=== PATIENT | male | born 1960 | race Caucasian/White ===

== ENCOUNTER 2017-02-02 15:51 | Emergency (ER) | payer MEDICAID ==
[2017-02-02 16:02] VITALS: BP 115/65; BMI 37.5
--- NOTE | 2017-02-02 19:15 | DR.EXTPAIN ---
HPI - Time seen Time seen: 19:15 - PCP Primary Care Physician: NONE - HPI Comment HPI Comment: PIECE OF WIRE AT BOTTOM OF RT FOOT/BASE OF 5TH TOE. TD UTD. - Complaint/Symptoms Chief Complaint Doctor Comments: PUNCTURE WOUND RIGHT FOOT WITH EMBEDDED FB. Chief Complaint:: GOT PIECES OF WIRE IN BOTTOM OF RIGHT FOOT. Self Treatment fo Chief Complaint: HAS TRIED TO GET TO GET PIECES OF WIRE OUT OF HIS FOOT UNSUCESSFUL - Source History Provided: Patient - Mode of arrival Mode of Arrival: Ambulatory - Timing Onset of Chief Complaint: 01/26/17 - Context History of: None - Associated signs and symptoms Associated Signs and Symptoms: Pain, Swelling PMH - PMH Past Medical History: Yes Past Medical History: Coronary Artery Disease, Dyslipidemia, Hypertension Past Surgical History: Yes Surgical History: Angioplasty/Stents, Ortho Surgery - Family History History of Family Medical Conditions: Yes Family Medical History: Cancer - Social History Type of Tobacco Use: Cigarettes Alcohol Use: None Do you use any recreational Drugs:: No Lives With: Family Lives Where: Home - infectious screening In the last 2 months have you had wt loss of >10#?: NO Have you had fever, night sweats or hemotysis?: No Have you traveled outside the country in the last 6 months?: No Isolation: Standard ROS - Review of Systems Constitutional: No Symptoms Reported Eyes: No Symptoms Reported ENTM: No Symptoms Reported Respiratoy: No Symptoms Reported Cardiovascular: No Symptoms Reported Gastrointestinal/Abdominal: No Symptoms Reported Genitourinary: No Symptoms Reported Neurological: No Symptoms Reported Musculoskeletal: Right, Foot Integumentary: Change in Color, Wound (PUNCTURE WOUND ) Hematologic/Lymphatic: No Symptoms Reported Endocrine: No Symptoms Reported All Other Systems: Reviewed and Negative PE - Vital Signs Vitals: Temperature 98.5 F Pulse Rate 74 Respiratory Rate 14 Blood Pressure 115/65 O2 Sat by Pulse Oximetry 95 - General Limitations: No Limitations General Appearance: Alert - Head Head Exam: Normal Inspection - Eyes Eye exam: Normal Appearance - ENT ENT Exam: Normal External Ear Exam - Neck Neck Exam: Normal Inspection - Chest Chest Inspection: Symmetric Chest Wall Rise - Respiratory Respiratory Exam: Normal Lung Sounds Bilat Respiratory Exam: Bilateral Clear to Auscultation - Cardiovascular Cardiovascular Exam: Regular Rate, Normal Heart Sounds - Abdominal Exam Abdominal Exam: Normal Inspection - Extremities Extremities Exam: Tenderness (BOTTOM RT TOE, FB/PIECE OF WIRE.) - Neurological Neurological Exam: Alert, Oriented X3 - Psychiatric Psychiatric Exam: Normal Affect, Normal Mood - Skin Skin Exam: Erythema MDM - Differential Diagnosis Differential Diagnosis: Other (PUNTURE WOUND.) Course - Treatment Treatment: SEE ORDERS. - Consultation Consultation Comments: DISCUSS PATIENT WITH DR. JOHNSON. HE WII SEE PATIENT IN HIS OFFICE IN AM. - Education/Counseling Education/Counseling: Patient, Family, Education Educated On: Treatment, Diagnosis, Needs for Follow Up ROR - XRAY XRAY Interpreted by: Radiologist XRAY Findings: REPORT DISCUS WITH PATIENT. - Diagnosis Discharge Problem: Puncture wound of foot with foreign body Qualifiers: Encounter type: initial encounter Laterality: right Qualified Code(s): S91.341A - Puncture wound with foreign body, right foot, initial encounter - Discharge Plan Disposition: 01 HOME, SELF-CARE Condition: Stable Prescriptions: Cephalexin [Keflex Cap 500 mg] 500 mg PO QID #40 cap Ibuprofen [Motrin Tab 800 mg] 800 mg PO Q8H PRN #20 tab PRN Reason: Pain/Inflammation - Follow ups/Referrals Follow ups/Referrals: NFD,None [Primary Care Provider] - 3 days - Instructions Instructions: Puncture Wound, [id number] Additional Instructions: RETURN TO ED IF WORSE. SEE ORTHOPEDIC DOCTOR IN AM AT 09:00 AM IN HIS OFFICE IN [place]. YOU HAVE METAL EMBEDDED IN YOU FOOT.
--- NOTE | 2017-02-02 19:49 | RAD ---
HISTORY: Right foot injury/foreign body Comparison: None. EXAM: Three view series, right foot. Findings: The exam demonstrates diffuse plantar soft tissue swelling and edema with a tiny radiodense 1 millim eter foreign body seen within the plantar/lateral aspect of the right foot adjacent to the 5th proxi mal phalanx head which probably reflects a small metallic object. No acute fracture or acute bony in jury is seen. The Lisfranc joint is intact. There is mild midfoot and subtalar joint DJD. Diffuse he el and plantar soft tissue edema and swelling is observed. Impression: Diffuse plantar soft tissue swelling and edema with a tiny radiodense 1 mm foreign body seen within the plantar/lateral aspect of the right foot adjacent to the 5th proximal phalanx head which probabl y reflects a small metallic object. No acute fracture or acute bony injury is seen. The Lisfranc seth nt is intact. Mild midfoot and subtalar joint DJD. Diffuse heel and plantar soft tissue edema and sw elling is observed. Reported By:
[2017-02-02] MEDS ORDERED: KEFLEX CAP 500 MG PO ONE ×2 (21:00→21:11)
[2017-02-02] MEDS ORDERED: MOTRIN TAB 800 MG PO ONE ×2 (21:01→21:11)
== END 2017-02-02 21:20 | disposition home or self-care (01) ==
LOC: ER 16:12
DX: S91.341A Puncture wound with foreign body, right foot, initial encounter (principal); M79.89 Other specified soft tissue disorders; R60.9 Edema, unspecified; W45.8XXA Other foreign body or object entering through skin, initial encounter; Y92.9 Unspecified place or not applicable
CPT/HCPCS: 73630; 99282; 99283

== ENCOUNTER → 2017-02-06 | Day surgery (SDC) | payer MEDICAID ==
[~2017-02-06] MED LIST: ANCEF VIAL 1 GM ONE; D5 LR 1000 ML 1,000 ML IV ONE; HYDROGEN PEROXIDE 3% ONE; MARCAINE 0.25% WITH EPI IJ ONE; NS 100 ML IV 100 ML IV ONE; NS IRRIGATION 1000 ML 1,000 ML with BACITRACIN VIAL 50,000 UNT IR ONE; PERCOCET TAB 5/325 MG PO PRN
--- NOTE | 2017-02-06 14:20 | RAD ---
HISTORY: Follow up soft tissue foreign body Study: Right foot three view Comparison: None Findings: The previously described tiny metallic radiopaque foreign body noted to be adjacent to the base of t he 5th proximal phalanx on the prior examination is no longer present having been successfully remov ed. There is some soft tissue swelling in the area. The bones and joints of the foot are intact and normally aligned. IMPRESSION: Successful removal of the metallic foreign body previously noted adjacent to the base of the 5th pro ximal phalanx. Reported By:
[2017-02-06 14:44] VITALS: BP 118/55
== END | disposition home or self-care (01) ==
LOC: SURG1 11:55
PROVIDERS: ATTEND Orthopaedic Surgery
PROC: 0JCQ0ZZ Extirpation of Matter from Right Foot Subcutaneous Tissue and Fascia, Open Approach (ICD-10-PCS; principal; 2017-02-06 11:45)
DX: S91.341A Puncture wound with foreign body, right foot, initial encounter (principal); X58.XXXA Exposure to other specified factors, initial encounter
CPT/HCPCS: 73630; 76000; A4222; S0020; J0690; J7120

== ENCOUNTER → 2017-02-08 | Outpatient (CLI) | payer MEDICAID ==
[2017-02-06 14:44] VITALS: BP 118/55
--- NOTE | 2017-02-08 15:05 | RAD ---
HISTORY: Status post removal foreign body Study: Right calcaneus two-view Comparison: February 06, 2017 Findings: There is no evidence for fracture, lytic, or blastic lesion. The subtalar joint is normal. No radiop aque foreign body is identified in the soft tissues. IMPRESSION: No significant abnormality identified Reported By:
== END ==
LOC: RAD 14:23
PROVIDERS: ATTEND Orthopaedic Surgery
DX: S91.341A Puncture wound with foreign body, right foot, initial encounter (principal); X58.XXXA Exposure to other specified factors, initial encounter
CPT/HCPCS: 73650

== ENCOUNTER → 2017-05-04 | Outpatient (CLI) | payer MEDICAID ==
[2017-02-06 14:44] VITALS: BP 118/55
--- NOTE | 2017-05-05 08:53 | MRI ---
MR left knee without contrast Indication: Left knee pain stiffness. History of lateral meniscus tear diagnosed in the past. Comparison: September 27, 2016 radiograph. Findings: There is moderate knee joint degenerative change, with joint space narrowing worse the med ial femorotibial joint. Neurovascular structures are normal. Bone marrow signal is normal. The ACL is intact. Lateral collateral ligamentous complex is intact. Osteophyte at the medial femora l epicondyle suggest sequela of old MCL injury. There is no large joint effusion. There is horizontal oblique tear of the medial meniscus near circumferential involving the anterior horn, body and posterior horn see sagittal images 17-13. Coronal image 18 shows extrusion of the med ial meniscus. There is high signal in the lateral meniscus involving the body, anterior horn and posterior horn roblero ggesting circumferential horizontal oblique tear which most convincingly contacts the inferior artic ular surface on coronal image 20. There is fluid at the tibial attachment of the PCL see sagittal image 21 and coronal image 25. This is probably a PCL ganglion, but partial tear is possible. There is chondromalacia and cartilage loss most pronounced over the medial femorotibial joint with f issuring over the lateral patellar facet and median patellar ridge. Extensor mechanism is intact oth erwise. There is round fluid collection with internal debris, measuring 1.9 x 1.5 x 3.0 cm on axial image 18 and coronal image 21 (AP, trans, CC). This could represent a ganglion cyst, but is associated with the MCL. This probably represents a large parameniscal cyst, given its in Amend association with the posterior aspect of the body on coronal image 21. MCL versus possible. Impression: 1. Complex tear of the medial meniscus with medial femorotibial joint degenerative change and extrus ion of the medial meniscus. There is associated large medial cyst, probably a parameniscal cyst, tho ugh mcl bursitis is possible as a secondary consideration. 2. Nondisplaced horizontal oblique tear of the lateral meniscus common near circumferential but wors t at the body. 3. Fluid at the tibial attachment of the PCL, probably PCL ganglion but partial tear the PCL is poss ible. 4. Multi compartment degenerative change worse in the medial femorotibial joint but involving the pa tellofemoral cartilage is well. Lateral femorotibial cartilage is relatively intact with minimal cho ndromalacia. Reported By:
== END ==
LOC: RAD 14:55
PROVIDERS: ATTEND Orthopaedic Surgery
DX: M23.201 Derangement of unspecified lateral meniscus due to old tear or injury, left knee (principal)
CPT/HCPCS: 73721

== ENCOUNTER → 2017-05-16 | Outpatient (CLI) | payer MEDICAID ==
[2017-02-06 14:44] VITALS: BP 118/55
[2017-05-16 11:45] LABS: BASOPHILS # (AUTO) 0.1 X10^3/uL (0.0-0.1); EOSINOPHILS # (AUTO) 0.2 x10^3/uL (0.0-0.2); EOSINOPHILS % (AUTO) 2.8 % (0.9-2.9); HEMATOCRIT 46.3 % (42.0-54.0); LYMPHOCYTES # (AUTO) 2.7 X10^3/uL (1.3-2.9); LYMPHOCYTES % (AUTO) 32.3 % (21.0-51.0); MEAN CORPUSCULAR HEMOGLOBIN 30.2 pg (27.0-34.0); MEAN CORPUSCULAR HGB CONC 34.6 g/dL (33.0-35.0); MEAN CORPUSCULAR VOLUME 87.4 fL (80.0-100.0); MEAN PLATELET VOLUME 7.5 fL (7.4-11.0); MONOCYTES # (AUTO) 0.7 x10^3/uL (0.3-0.8); MONOCYTES % (AUTO) 8.2 % (0.0-13.0); NEUTROPHILS # (AUTO) 4.6 x10^3/uL (2.2-4.8); NEUTROPHILS % (AUTO) 55.7 % (42.0-75.0); PLATELET COUNT 271 X10^3/uL (150.0-450.0); RED CELL DISTRIBUTION WIDTH 13.9 % (11.6-16.5); WHITE BLOOD COUNT 8.2 X10^3/uL (3.6-10.0)
[2017-05-16 11:48] LABS: BILIRUBIN,URINE NEGATIVE (NEGATIVE); BLOOD/HEMOGLOBIN,URINE NEGATIVE (NEGATIVE); GLUCOSE, URINE NEGATIVE (NEGATIVE); KETONES,URINE NEGATIVE (NEGATIVE); LEUKOCYTE ESTERASE ,URINE NEGATIVE (NEGATIVE); NITRITES,URINE NEGATIVE (NEGATIVE); PROTEIN,URINE NEGATIVE (NEGATIVE); UROBILINOGEN,URINE NORMAL (NORMAL)
[2017-05-16 11:54] LABS: ALANINE AMINOTRANSFERASE 45 Units/L (12-78); ALBUMIN 3.3 g/dL (3.4-5.0); ALKALINE PHOSPHATASE 84 Units/L (46-116); ASPARTATE AMINO TRANSFERASE 20 Units/L (15-37); BLOOD UREA NITROGEN 13 mg/dL (7-18); CALCIUM 9.2 mg/dL (8.5-10.1); CARBON DIOXIDE 26.3 mmol/L (21-32); CHLORIDE 105 mmol/L (98-107); COR CA(FOR HYPOALB) 9.8 mg/dL (8.5-10.1); COR NA(FOR HYPERGLY) 138 mmol/L (136-145); CREATININE 1.11 mg/dL (0.70-1.30); GLUCOSE 115 mg/dL (65-99); SODIUM 138 mmol/L (136-145); TOTAL PROTEIN 7.6 g/dL (6.4-8.2); eGFR BLACK RACES > 60 (>60); eGFR NON BLACK RACES > 60 (>60)
[2017-05-16 12:25] LABS: APPEARANCE,URINE CLEAR (CLEAR); BACTERIA,URINE TRACE /HPF (NEGATIVE); COLOR,URINE YELLOW (YELLOW); MUCUS,URINE MANY /HPF (NEGATIVE); RBC,URINE NONE SEEN /HPF (NEGATIVE); SQUAMOUS EPITHELIAL CELL,UR RARE /HPF (NEGATIVE)
[2017-05-16 12:33] LABS: ERYTHROCYTE SEDIMENTATION RATE 4 MM/HOUR (0-15)
--- NOTE | 2017-05-16 13:21 | RAD ---
HISTORY: Preop knee. Study: Chest two views Comparison: None. Findings: The trachea is midline. The cardiac silhouette is unremarkable. There is some prominence of the pul monary interstitial markings in both lungs, mostly in the perihilar regions. There is no evidence of consolidation, effusion or pneumothorax. The bony thorax is unremarkable. IMPRESSION: 1. Prominence of pulmonary interstitial markings in both lungs as described. Differential considerat ions would include underlying interstitial lung disease versus interstitial edema or pneumonitis. Cli nical correlation is recommended. Reported By:
== END ==
LOC: LAB 10:58
PROVIDERS: ATTEND Orthopaedic Surgery
DX: Z01.818 Encounter for other preprocedural examination (principal); Z01.810 Encounter for preprocedural cardiovascular examination; Z01.811 Encounter for preprocedural respiratory examination; Z79.899 Other long term (current) drug therapy; Z11.8 Encounter for screening for other infectious and parasitic diseases; Z79.01 Long term (current) use of anticoagulants; S83.232A Complex tear of medial meniscus, current injury, left knee, initial encounter; X58.XXXA Exposure to other specified factors, initial encounter
CPT/HCPCS: 36415; 71020; 80053; 81001; 85025; 85610; 85652; 85730; 86140; 87641; 93005; 93010

== ENCOUNTER 2017-08-14 08:58 | Emergency (ER) | payer MEDICAID ==
[2017-08-14 09:08] VITALS: BP 142/76; BMI 39.1
[2017-08-14] MEDS ORDERED: TORADOL 60 MG VIAL IM ONE (09:46)
--- NOTE | 2017-08-14 09:47 | DR.GENAD ---
HPI - PCP Primary Care Physician: ANEUDY CARBON IN [place] - Complaint/Symptoms Chief Complaint Doctors Comments: Patient with a history of DJD of multiple joints. 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 PT STATES THIS HAS HAPPENED TO ME BEFORE.. - Source History Provided: Patient - Mode of Arrival Mode of Arrival: Ambulatory - Timing Onset of Chief Complaint: 08/13/17 PMH - PMH Past Medical History: Yes Past Medical History: Coronary Artery Disease, Dyslipidemia, Hypertension Past Surgical History: Yes Surgical History: Angioplasty/Stents, Ortho Surgery - Family History History of Family Medical Conditions: Yes Family Medical History: Cancer - Social History Does patient currently use any type of tobacco product: No Have you used tobacco products in the last 12 months: No Type of Tobacco Use: Cigarettes How many years tobacco product used: 30 Does any household member use tobacco: No Alcohol Use: Rarely Do you use any recreational Drugs:: No Lives With: Family Lives Where: Home - infectious screening In the last 2 months have you had wt loss of >10#?: NO Have you had fever, night sweats or hemotysis?: No Have you traveled outside the country in the last 6 months?: No Isolation: Standard ROS - Review of Systems Eyes: No Symptoms Reported ENTM: No Symptoms Reported Respiratoy: No Symptoms Reported Cardiovascular: No Symptoms Reported Gastrointestinal/Abdominal: No Symptoms Reported Genitourinary: No Symptoms Reported Neurological: No Symptoms Reported Musculoskeletal: Back Pain, Leg, Knee Integumentary: No Symptoms Reported Hematologic/Lymphatic: No Symptoms Reported Endocrine: No Symptoms Reported Psychiatric: No Symptoms Reported All Other Systems: Reviewed and Negative PE - Vital Signs Vitals: Temperature 97.1 F Pulse Rate 75 Respiratory Rate 18 Blood Pressure 142/76 O2 Sat by Pulse Oximetry 96 - General Limitations: No Limitations General Appearance: Alert, In No Apparent Distress - Head Head Exam: Normal Inspection, Atraumatic - Eyes Eye exam: Normal Appearance, PERRL, EOMI - ENT ENT Exam: Normal Exam External Ear Exam: Normal External Inspection TM/Canal Exam: Bilateral Normal Nose Exam: Normal Nose Exam Mouth Exam: Normal Inspection Throat Exam: Normal Inspection - Neck Neck Exam: Normal Inspection, Full ROM - Chest Chest Inspection: Normal Inspection - Respiratory Respiratory Exam: Normal Lung Sounds Bilat Respiratory Exam: Bilateral Clear to Auscultation - Cardiovascular Cardiovascular Exam: Regular Rate, Normal Rhythm - Abdominal Exam Abdominal Exam: Normal Inspection, Normal Bowel Sounds Abdominal Tenderness: negative: RUQ, RLQ, LUQ, LLQ, Epigastrium, Suprapubic, Diffuse, Mild, Moderate, Severe, Other - Extremities Extremities Exam: Normal Inspection, Tenderness (right hip and right knee pain with numbness of lower extremity) - Back Back Exam: Normal Inspection, Full ROM - Neurologic Neurological Exam: Alert, Oriented X3, CN II-XII Intact - Psychiatric Psychiatric Exam: Normal Affect, Normal Mood - Skin Skin Exam: Warm, Dry, Intact Course - Education/Counseling Education/Counseling: Education Educated On: Treatment, Diagnosis, Prognosis, Needs for Follow Up - Diagnosis Discharge Problem: Chronic knee pain Qualifiers: Laterality: right Qualified Code(s): M25.561 - Pain in right knee; G89.29 - Other chronic pain; G89.29 - Other chronic pain Degenerative joint disease of knee, right Qualifiers: Osteoarthritis type: unspecified Qualified Code(s): M17.11 - Unilateral primary osteoarthritis, right knee - Discharge Plan Condition: Stable - Follow ups/Referrals Follow ups/Referrals: NFD,None [Primary Care Provider] - 3 days - Instructions
[2017-08-14] MEDS ORDERED: TORADOL 60 MG VIAL ONE (09:51)
== END 2017-08-14 10:20 | disposition home or self-care (01) ==
LOC: ER 09:15
DX: M25.561 Pain in right knee (principal); G89.29 Other chronic pain; M17.11 Unilateral primary osteoarthritis, right knee
CPT/HCPCS: 96372; 99282; J1885

== ENCOUNTER → 2017-08-16 | Outpatient (CLI) | payer MEDICAID ==
[2017-08-14 09:08] VITALS: BP 142/76
--- NOTE | 2017-08-16 15:35 | RAD ---
Examination: Lumbar spine, five views History: Chronic pain carpal the there is degenerative disc space narrowing with hypertrophic osteoph yte formation at multiple levels. No acute fracture is seen. Alignment is grossly normal although a t rue lateral view was not obtained. There is osteoarthritic deformity of the lower apophyseal facet nikita ints. The sacroiliac joints are normal Impression: Multilevel degenerative disc disease and spondylosis, and apophyseal facet joint arthropa thy. No acute features demonstrated. Reported By:
== END | disposition home or self-care (01) | DRG 552 ==
LOC: RAD 08:52
PROVIDERS: ATTEND Orthopaedic Surgery
DX: M54.5 Low back pain (principal); M51.36 Other intervertebral disc degeneration, lumbar region; M47.896 Other spondylosis, lumbar region
CPT/HCPCS: 72110

== ENCOUNTER → 2017-09-06 | Outpatient (CLI) | payer MEDICAID ==
[2017-08-14 09:08] VITALS: BP 142/76
--- NOTE | 2017-09-06 14:52 | MRI ---
HISTORY: Low back pain, right-sided radiculopathy Study: MRI lumbar spine without contrast Comparison: None Technique: Multiplanar multi-sequence MRI of the lumbar spine was obtained. Sagittal T1, sagittal T2 , and stir weighted images, axial T1, and axial T2 images were obtained. Findings: There is minimal anterolisthesis of L5 on S1. Lumbar alignment is otherwise within normal limits. No abnormal cord or marrow signal identified. The conus of the cord terminates normally. There simple right renal cyst. Paraspinal soft are otherwise unremarkable. Vertebral body heights are preserved. M ultilevel spondylosis and disc desiccation is present. T12 -- L1: No significant stenosis. L1 -- L2: No significant stenosis. L2 -- L3: Mild facet arthropathy is present. There is a broad-based disc bulge asymmetric the right r esulting mild right foraminal stenosis. L3 -- L4: There is disc height loss desiccation spondylitic changes and moderate facet hypertrophy re sulting in moderate right and mild left foraminal stenosis. L4 -- L5: Mild circumferential disc bulge and spondylitic changes well as moderate facet arthropathy resulting in mild bilateral foraminal stenosis. L5 -- S1: Facet arthropathy is present with grade 1 anterolisthesis at L5-S1 there is mild right fora richelle stenosis. IMPRESSION: 1. Multilevel disc disease and facet arthropathy as detailed above with moderate bilateral foraminal stenosis at L3-L4. Reported By:
== END | disposition home or self-care (01) | DRG 74 ==
LOC: RAD 08:27
PROVIDERS: ATTEND Orthopaedic Surgery
DX: M54.10 Radiculopathy, site unspecified (principal); M48.07 Spinal stenosis, lumbosacral region
CPT/HCPCS: 72148

== ENCOUNTER 2017-10-11 09:38 | Day surgery (SDC) | payer MEDICAID ==
[2017-10-11] MEDS ORDERED: KENALOG INJ 40 MG IM ONE (10:05)
[2017-10-11] MEDS ORDERED: MARCAINE 0.25% INJ ONE (10:06)
--- NOTE | 2017-10-11 10:20 | DR.UPDATE ---
H&P Update History and Physical Update: History and Physical reviewed and patient examined. Changes noted: NO Yes with the following:Agree with H&P from Dr Kruger. will proceed with L3-4 ROSANGELA right.
[2017-10-11 11:16] VITALS: BP 138/62
== END 2017-10-11 11:10 | disposition home or self-care (01) | DRG 552 ==
LOC: SURG1 09:38
PROVIDERS: ATTEND Orthopaedic Surgery
PROC: 3E0R3BZ Introduction of Anesthetic Agent into Spinal Canal, Percutaneous Approach (ICD-10-PCS; 2017-10-11)
PROC: 3E0R33Z Introduction of Anti-inflammatory into Spinal Canal, Percutaneous Approach (ICD-10-PCS; principal; 2017-10-11 10:00)
DX: M51.36 Other intervertebral disc degeneration, lumbar region (principal)
CPT/HCPCS: 62323; 76000; A4222; S0020; J3301

== ENCOUNTER 2017-11-15 11:12 | Day surgery (SDC) | payer MEDICAID ==
[2017-11-15] MEDS ORDERED: KENALOG INJ 40 MG IM ONE (11:34)
[2017-11-15] MEDS ORDERED: MARCAINE 0.25% INJ ONE (11:34)
--- NOTE | 2017-11-15 11:50 | DR.UPDATE ---
H&P Update History and Physical Update: History and Physical reviewed and patient examined. Changes noted: NO Yes with the following:Agree with H&P from Dr Kruger. Pt received right L3-4 analisa previosly with good relief and will now perform Left L3-4 analisa
[2017-11-15 12:27] VITALS: BP 120/69
== END 2017-11-15 12:27 | disposition home or self-care (01) | DRG 552 ==
LOC: SURG1 11:12
PROVIDERS: ATTEND Orthopaedic Surgery
PROC: 3E0R3BZ Introduction of Anesthetic Agent into Spinal Canal, Percutaneous Approach (ICD-10-PCS; 2017-11-15)
PROC: 3E0R33Z Introduction of Anti-inflammatory into Spinal Canal, Percutaneous Approach (ICD-10-PCS; principal; 2017-11-15 12:00)
DX: M54.17 Radiculopathy, lumbosacral region (principal)
CPT/HCPCS: 62323; 76000; A4222; S0020; J3301

== ENCOUNTER → 2018-02-01 | Outpatient (CLI) | payer MEDICAID ==
[2018-02-01 10:46] LABS: CHOL/HDL RATIO 4.6 (0.0-5.0)
== END ==
LOC: LAB 10:12
PROVIDERS: ATTEND Nurse Practitioner Adult Health
DX: I25.10 Atherosclerotic heart disease of native coronary artery without angina pectoris (principal)
CPT/HCPCS: 36415; 80061